=== PATIENT | female | born 1950 | race Caucasian/White ===

== ENCOUNTER 2021-07-05 11:03 | Inpatient (IN) ==
[2021-07-05] MEDS ORDERED: cefOXitin 2,000 MG in Water for inj. (sterile) 10 ML IVP ONE (11:18)
[2021-07-05] MEDS ORDERED: Ringers Solution, Lactated 1,000 ML IVC SCH (11:30)
[2021-07-05] MEDS ORDERED: Ondansetron 4 MG/2 ML VIAL IVP PRN ×2 (12:07→20:00)
[2021-07-05] MEDS ORDERED: Promethazine 6.25 MG in Water for inj. (sterile) 20 ML IVPB PRN (12:07)
[2021-07-05 12:20] LABS: Basophils % 0.1 %; Eosinophils % 0.3 %; Immature Granulocytes % 0.4 % (0-4); Lymphocytes # 1.5 K/mcL (0.6-4.6); Mean Corpuscular HGB Conc 32.4 g/dL (31.6-35.5); Mean Corpuscular Hemoglobin 30.3 pg (28.0-33.3); Mean Corpuscular Volume 93.4 fL (83.0-100.0); Mean Platelet Volume 10.1 fL (9.4-12.4); Monocytes # 0.7 K/mcL (0.0-1.3); Monocytes % 5.3 %; Neutrophils # 10.4 K/mcL (1.6-8.9); Platelet Count 325 K/mcL (140-400); Red Blood Count 3.96 M/mcL (3.82-4.97); Red Cell Distribution Width 13.5 % (11.5-14.5); Segmented Neutrophils % 81.9 %; White Blood Count 12.7 K/mcL (4.3-11.1)
[2021-07-05] MEDS ORDERED: *HR* FentaNYL (PF) 100 MCG/2 ML VIAL ONE ×2 (14:27→17:33)
[2021-07-05] MEDS ORDERED: *HR* Propofol 200 MG/20 ML VIAL IVP ONE (14:27)
[2021-07-05] MEDS ORDERED: *HR* Rocuronium Bromide 50 MG/5 ML VIAL ONE (14:27)
[2021-07-05] MEDS ORDERED: Ondansetron 4 MG/2 ML VIAL IVP ONE (14:32)
[2021-07-05] MEDS ORDERED: Ondansetron 4 MG/2 ML VIAL ONE (17:22)
[2021-07-05] MEDS ORDERED: *HR* Labetalol 20 MG/4 ML SYRINGE IVP ONE (17:32)
[2021-07-05] MEDS ORDERED: Acetaminophen 325 MG TABLET PO PRN (20:00)
[2021-07-05] MEDS ORDERED: Naloxone 0.4 MG/ML INJ IVP PRN (20:00)
[2021-07-05] MEDS ORDERED: *HR* FentaNYL (PF) 100 MCG/2 ML VIAL IVP PRN (20:00)
[2021-07-05] MEDS: 0.9 % Sodium Chloride 1,000 ML IVC SCH (21:03)
[2021-07-05] MEDS: Pantoprazole 40 MG VIAL IVP SCH (21:03)
[2021-07-05] MEDS: *HR* HYDROcodone/Acet 5/325 mg TABLET PO PRN (21:09)
[2021-07-06] MEDS: Piperacillin/Tazobactam 3.375 GM in 0.9 % Sodium Chloride Mini Bag 100 ML IVPB SCH ×3 (00:18→17:41)
[2021-07-06] MEDS: *HR* HYDROcodone/Acet 5/325 mg TABLET PO PRN ×2 (04:34→17:45)
[2021-07-06 08:52] LABS: Hematocrit 31.9 % (35.3-44.9); Immature Granulocytes % 0.6 % (0-4); Lymphocytes # 0.7 K/mcL (0.6-4.6); Lymphocytes % 6.4 %; Mean Corpuscular HGB Conc 32.3 g/dL (31.6-35.5); Mean Corpuscular Hemoglobin 30.3 pg (28.0-33.3); Mean Corpuscular Volume 93.8 fL (83.0-100.0); Mean Platelet Volume 10.3 fL (9.4-12.4); Monocytes # 0.3 K/mcL (0.0-1.3); Monocytes % 2.9 %; Neutrophils # 9.8 K/mcL (1.6-8.9); Platelet Count 281 K/mcL (140-400); Red Cell Distribution Width 13.7 % (11.5-14.5); Segmented Neutrophils % 90.1 %; White Blood Count 10.9 K/mcL (4.3-11.1)
[2021-07-06 08:55] LABS: Hemoglobin 10.3 g/dL (11.5-15.4)
[2021-07-06] MEDS ORDERED: BISOPROLOL FUMARATE 10 MG PO SCH (09:00)
[2021-07-06 09:07] LABS: BUN/Creatinine Ratio 12 (6-26); Blood Urea Nitrogen 12 mg/dL (8-23); Calcium 8.1 mg/dL (8.6-10.3); Carbon Dioxide 25 mEq/L (23-29); Chloride 104 mEq/L (98-107); Glucose 143 mg/dL (70-105); Magnesium 1.8 mg/dL (1.6-2.6); Osmolality,Calculated 286 (280-300); Phosphorous 3.4 mg/dL (2.7-4.5); Potassium 3.9 mEq/L (3.5-5.1); Sodium 137 mEq/L (136-145); eGFR For African Americans > 60 (> 60); eGFR For Non-African Americans 54 (> 60)
[2021-07-06] MEDS: Pantoprazole 40 MG VIAL IVP SCH (09:23)
[2021-07-06] MEDS: amLODIPine 5 MG TABLET PO SCH (09:24)
[2021-07-06] MEDS: 0.9 % Sodium Chloride 1,000 ML IVC SCH (09:24)
[2021-07-06] MEDS ORDERED: 0.9 % Sodium Chloride 1,000 ML IVC SCH (10:30)
[2021-07-06] MEDS: Acetaminophen 325 MG TABLET PO SCH ×3 (12:55→23:42)
[2021-07-06] MEDS: *HR* Heparin 5,000 UNIT/ML VIAL SQ SCH (17:41)
[2021-07-06] MEDS: BISOPROLOL 10 MG PO SCH (20:27)
[2021-07-07 05:48] LABS: Basophils % 0.1 %; Hematocrit 32.4 % (35.3-44.9); Hemoglobin 10.5 g/dL (11.5-15.4); Immature Granulocytes % 0.5 % (0-4); Lymphocytes # 1.4 K/mcL (0.6-4.6); Lymphocytes % 7.8 %; Mean Corpuscular HGB Conc 32.4 g/dL (31.6-35.5); Mean Corpuscular Volume 95.6 fL (83.0-100.0); Mean Platelet Volume 10.3 fL (9.4-12.4); Monocytes # 0.9 K/mcL (0.0-1.3); Monocytes % 5.1 %; Neutrophils # 15.2 K/mcL (1.6-8.9); Platelet Count 295 K/mcL (140-400); Red Blood Count 3.39 M/mcL (3.82-4.97); Red Cell Distribution Width 14.1 % (11.5-14.5); Segmented Neutrophils % 86.5 %
[2021-07-07 05:50] LABS: White Blood Count 17.6 K/mcL (4.3-11.1)
[2021-07-07 06:11] LABS: BUN/Creatinine Ratio 13 (6-26); Blood Urea Nitrogen 12 mg/dL (8-23); Calcium 8.6 mg/dL (8.6-10.3); Carbon Dioxide 25 mEq/L (23-29); Chloride 105 mEq/L (98-107); Glucose 106 mg/dL (70-105); Magnesium 1.9 mg/dL (1.6-2.6); Osmolality,Calculated 286 (280-300); Phosphorous 2.9 mg/dL (2.7-4.5); Potassium 3.7 mEq/L (3.5-5.1); Sodium 138 mEq/L (136-145); eGFR For African Americans > 60 (> 60); eGFR For Non-African Americans 59 (> 60)
[2021-07-07] MEDS: Acetaminophen 325 MG TABLET PO SCH ×3 (06:15→17:24)
[2021-07-07] MEDS: *HR* Heparin 5,000 UNIT/ML VIAL SQ SCH ×2 (06:15→17:24)
[2021-07-07] MEDS: Piperacillin/Tazobactam 3.375 GM in 0.9 % Sodium Chloride Mini Bag 100 ML IVPB SCH ×2 (09:21→17:26)
[2021-07-07] MEDS: amLODIPine 5 MG TABLET PO SCH (09:21)
[2021-07-07] MEDS: Pantoprazole 40 MG VIAL IVP SCH (09:22)
[2021-07-07] MEDS: *HR* HYDROcodone/Acet 5/325 mg TABLET PO PRN (12:19)
[2021-07-07] MEDS: Ipratropium/Albuterol Neb 3 ML IH SCH ×3 (16:03→20:23)
[2021-07-07] MEDS ORDERED: Furosemide 20 MG/2 ML VIAL IVP ONE (16:21)
[2021-07-07] MEDS ORDERED: Perflutren Lipid Microsphere 1.3 ML in 0.9 % Sodium Chloride 8.7 ML IVP PRN (17:14)
[2021-07-07 17:47] LABS: Bilirubin,Urine Negative (Negative); Blood,Urine Negative (Negative); Clarity,Urine Clear (Clear); Color,Urine Colorless (Yellow); Glucose,Urine (UA) Normal (Normal); Ketones,Urine Negative (Negative); Leukocyte Esterase,Urine Negative (Negative); Nitrite,Urine Negative (Negative); Protein,Urine Negative (Neg-Trace); Specific Gravity,Urine 1.012 (1.010-1.025); Urobilinogen,Urine Normal (Normal)
[2021-07-07] MEDS: Furosemide 20 MG/2 ML VIAL IVP SCH (21:01)
[2021-07-07] MEDS: BISOPROLOL 10 MG PO SCH (21:02)
[2021-07-08] MEDS: Acetaminophen 325 MG TABLET PO SCH ×4 (00:07→18:49)
[2021-07-08] MEDS: Piperacillin/Tazobactam 3.375 GM in 0.9 % Sodium Chloride Mini Bag 100 ML IVPB SCH ×3 (00:08→16:22)
[2021-07-08 01:53] LABS: Basophils % 0.2 %; Eosinophils # 0.1 K/mcL (0.0-0.6); Eosinophils % 0.4 %; Hematocrit 35.6 % (35.3-44.9); Hemoglobin 11.2 g/dL (11.5-15.4); Immature Granulocytes % 0.7 % (0-4); Mean Corpuscular HGB Conc 31.5 g/dL (31.6-35.5); Mean Corpuscular Volume 95.4 fL (83.0-100.0); Mean Platelet Volume 10.6 fL (9.4-12.4); Monocytes # 0.9 K/mcL (0.0-1.3); Monocytes % 6.8 %; Neutrophils # 9.6 K/mcL (1.6-8.9); Platelet Count 283 K/mcL (140-400); Red Blood Count 3.73 M/mcL (3.82-4.97); Red Cell Distribution Width 13.9 % (11.5-14.5); Segmented Neutrophils % 75.9 %; White Blood Count 12.7 K/mcL (4.3-11.1)
[2021-07-08 02:10] LABS: BUN/Creatinine Ratio 10 (6-26); Blood Urea Nitrogen 11 mg/dL (8-23); Calcium 8.8 mg/dL (8.6-10.3); Carbon Dioxide 33 mEq/L (23-29); Chloride 97 mEq/L (98-107); Glucose 98 mg/dL (70-105); Magnesium 1.7 mg/dL (1.6-2.6); Osmolality,Calculated 285 (280-300); Phosphorous 3.4 mg/dL (2.7-4.5); Potassium 3.1 mEq/L (3.5-5.1); Sodium 138 mEq/L (136-145); eGFR For African Americans > 60 (> 60); eGFR For Non-African Americans 52 (> 60)
[2021-07-08] MEDS: Ipratropium/Albuterol Neb 3 ML IH SCH ×4 (04:33→21:35)
[2021-07-08] MEDS: *HR* Heparin 5,000 UNIT/ML VIAL SQ SCH ×2 (05:44→18:49)
[2021-07-08] MEDS: Pantoprazole 40 MG VIAL IVP SCH (08:26)
[2021-07-08] MEDS: Furosemide 20 MG/2 ML VIAL IVP SCH ×2 (08:26→21:05)
[2021-07-08] MEDS: amLODIPine 5 MG TABLET PO SCH (08:27)
[2021-07-08] MEDS ORDERED: Potassium Chloride Elixir 20 MEQ/15 ML UDC PO ONE (15:21)
[2021-07-08] MEDS: BISOPROLOL 10 MG PO SCH (21:06)
[2021-07-09] MEDS: Piperacillin/Tazobactam 3.375 GM in 0.9 % Sodium Chloride Mini Bag 100 ML IVPB SCH ×3 (00:09→17:20)
[2021-07-09] MEDS: Acetaminophen 325 MG TABLET PO SCH ×2 (00:10→05:31)
[2021-07-09] MEDS: Ipratropium/Albuterol Neb 3 ML IH SCH ×4 (03:23→22:18)
[2021-07-09] MEDS: *HR* Heparin 5,000 UNIT/ML VIAL SQ SCH ×2 (05:31→17:21)
[2021-07-09 06:30] LABS: Basophils % 0.4 %; Eosinophils # 0.2 K/mcL (0.0-0.6); Hematocrit 38.7 % (35.3-44.9); Hemoglobin 12.6 g/dL (11.5-15.4); Immature Granulocytes % 0.5 % (0-4); Lymphocytes # 1.9 K/mcL (0.6-4.6); Lymphocytes % 18.5 %; Mean Corpuscular HGB Conc 32.6 g/dL (31.6-35.5); Mean Corpuscular Hemoglobin 30.4 pg (28.0-33.3); Mean Corpuscular Volume 93.3 fL (83.0-100.0); Mean Platelet Volume 10.3 fL (9.4-12.4); Monocytes # 0.7 K/mcL (0.0-1.3); Monocytes % 6.8 %; Neutrophils # 7.4 K/mcL (1.6-8.9); Platelet Count 333 K/mcL (140-400); Red Blood Count 4.15 M/mcL (3.82-4.97); Red Cell Distribution Width 13.7 % (11.5-14.5); Segmented Neutrophils % 71.8 %; White Blood Count 10.3 K/mcL (4.3-11.1)
[2021-07-09 06:51] LABS: BUN/Creatinine Ratio 10 (6-26); Blood Urea Nitrogen 10 mg/dL (8-23); Calcium 9.3 mg/dL (8.6-10.3); Carbon Dioxide 32 mEq/L (23-29); Chloride 95 mEq/L (98-107); Glucose 101 mg/dL (70-105); Osmolality,Calculated 283 (280-300); Potassium 3.4 mEq/L (3.5-5.1); Sodium 137 mEq/L (136-145); eGFR For African Americans > 60 (> 60); eGFR For Non-African Americans 53 (> 60)
[2021-07-09] MEDS ORDERED: Furosemide 20 MG/2 ML VIAL IVP SCH (09:00)
[2021-07-09] MEDS: Pantoprazole 40 MG VIAL IVP SCH (09:10)
[2021-07-09] MEDS: amLODIPine 5 MG TABLET PO SCH (09:11)
[2021-07-09] MEDS: BISOPROLOL 10 MG PO SCH (20:40)
[2021-07-10] MEDS: Ipratropium/Albuterol Neb 3 ML IH SCH ×3 (04:42→16:03)
[2021-07-10] MEDS: *HR* Heparin 5,000 UNIT/ML VIAL SQ SCH (05:06)
[2021-07-10 06:43] LABS: Basophils % 0.2 %; Eosinophils # 0.2 K/mcL (0.0-0.6); Eosinophils % 2.2 %; Hematocrit 36.8 % (35.3-44.9); Immature Granulocytes % 0.5 % (0-4); Lymphocytes # 1.6 K/mcL (0.6-4.6); Lymphocytes % 14.6 %; Mean Corpuscular HGB Conc 32.6 g/dL (31.6-35.5); Mean Corpuscular Hemoglobin 30.6 pg (28.0-33.3); Mean Corpuscular Volume 93.9 fL (83.0-100.0); Mean Platelet Volume 10.6 fL (9.4-12.4); Monocytes # 0.8 K/mcL (0.0-1.3); Monocytes % 6.9 %; Neutrophils # 8.3 K/mcL (1.6-8.9); Platelet Count 316 K/mcL (140-400); Red Blood Count 3.92 M/mcL (3.82-4.97); Red Cell Distribution Width 13.8 % (11.5-14.5); Segmented Neutrophils % 75.6 %
[2021-07-10 07:02] LABS: BUN/Creatinine Ratio 12 (6-26); Blood Urea Nitrogen 13 mg/dL (8-23); Calcium 8.7 mg/dL (8.6-10.3); Carbon Dioxide 31 mEq/L (23-29); Chloride 97 mEq/L (98-107); Glucose 112 mg/dL (70-105); Osmolality,Calculated 281 (280-300); Potassium 3.4 mEq/L (3.5-5.1); Sodium 135 mEq/L (136-145); eGFR For African Americans > 60 (> 60); eGFR For Non-African Americans 52 (> 60)
[2021-07-10] MEDS: amLODIPine 5 MG TABLET PO SCH (08:03)
[2021-07-10] MEDS: Pantoprazole 40 MG VIAL IVP SCH (08:04)
[2021-07-10] MEDS ORDERED: Isovue-370 500 ML BOTTLE IVP ONE ×2 (08:12)
[2021-07-10] MEDS ORDERED: Isovue-370 500 ML BOTTLE PO ONE (12:28)
[2021-07-10 15:03] VITALS: BP 150/55; PULSE 97; TEMP 98.8; O2SAT 90
== END 2021-07-10 16:44 | disposition home or self-care (01) | DRG 329 ==
LOC: SAMDAY 11:03 → 3ANU 20:04
PROVIDERS: ADMIT Surgery; ATTEND Surgery